=== PATIENT | female | born 1935 | race Caucasian/White ===

== ENCOUNTER 2023-10-10 08:57 | Observation (INO) | payer MEDICARE ==
[~2023-10-10] VITALS: Ht 165.1 cm; Wt 71.2 kg
[~2023-10-10 08:57] MED LIST: AMLODIPINE BESY10 MG PO; Areds2 PO; CARAFATE1 GM/10 ML PO; CLONIDINE HCL0.2 MG PO; DOXYCYCLINE HY100 MG PO; METOPROLOL TART50 MG PO; OMEPRAZOLE40 MG PO; PRAVASTATIN SOD40 MG PO; SERTRALINE HCL100 MG PO
[2023-10-10 09:31] LABS: EOSINOPHILS % 0.2 % (0.0-6.0); LYMPHOCYTES # (AUTO) 1.1 (1.0-3.2); LYMPHOCYTES % 25.3 % (18.0-39.1); MEAN CORPUSCULAR HEMOGLOBIN 29.9 pg (28-32); MEAN CORPUSCULAR HGB CONC 31.2 g/dL (31-35); MEAN CORPUSCULAR VOLUME 95.7 fL (81-99); MONOCYTES # (AUTO) 2.9 (0.2-0.8); MONOCYTES % 66.7 % (4.4-11.3); NEUTROPHILS # (AUTO) 0.3 (2.1-6.9); NEUTROPHILS % 7.6 % (38.7-80.0); PLATELET COUNT 61 x10e3/uL (140-360); RED BLOOD COUNT 2.11 x10e6/uL (3.6-5.1); RED CELL DISTRIBUTION WIDTH 16.9 % (11.7-14.4)
[2023-10-10 09:36] LABS: HEMATOCRIT 20.2 % (34.2-44.1); HEMOGLOBIN 6.3 g/dL (12.0-16.0)
[2023-10-10 09:45] LABS: ALBUMIN 3.7 g/dL (3.5-5.0); ALBUMIN/GLOBULIN RATIO 0.9 (0.8-2.0); ANION GAP 17.1 mmol/L (8-16); BILIRUBIN,TOTAL 0.5 mg/dL (0.2-1.2); CALCIUM 9.4 mg/dL (8.4-10.2); CREATININE, SERUM 1.35 mg/dL (0.57-1.11); POTASSIUM 4.1 mmol/L (3.5-5.1); TOTAL PROTEIN 7.9 g/dL (6.5-8.1)
[2023-10-10] MEDS ORDERED: ONDANSETRON HCL INJ 2MG/ML 2ML 2 MG/ML VIAL IV PRN ×2 (10:45→12:45)
[2023-10-10] MEDS ORDERED: SODIUM CHLORIDE FLUSH 10 ML SYR INJ PRN (10:45)
[2023-10-10] MEDS ORDERED: MELATONIN 3 MG TAB PO PRN (12:45)
[2023-10-10] MEDS ORDERED: ALBUTEROL SULF 0.083% NEB SOLN 3 ML NEB NEB PRN (12:45)
[2023-10-10] MEDS ORDERED: GUAIFENESIN/DEXTROMETHORPHAN LIQD 5 ML UDC PO PRN (12:45)
[2023-10-10] MEDS ORDERED: HYDRALAZINE HCL 20 MG/ML VIAL IV PRN (12:45)
[2023-10-10] MEDS ORDERED: DOCUSATE SODIUM 100 MG CAP PO PRN (12:45)
[2023-10-10] MEDS ORDERED: ACETAMINOPHEN 325 MG TAB PO PRN (12:45)
[2023-10-10] MEDS ORDERED: MAGNESIUM/ALUMINUM/SIMETHICONE 30 ML UDC PO PRN (12:45)
[2023-10-10 14:05] VITALS: BP 150/70; PULSE 80; RESP 16; TEMP 97.9; O2SAT 98
[2023-10-10 14:13] VITALS: BP 150/70; PULSE 80; RESP 16; TEMP 97.9; O2SAT 98
[2023-10-10 14:18] VITALS: BP 150/70; PULSE 80; RESP 16; TEMP 97.9; O2SAT 98
[2023-10-10] MEDS ORDERED: SUCRALFATE 1 GM/10 ML SUSP ONE ×2 (16:20→20:35)
[2023-10-10] MEDS ORDERED: METOPROLOL TARTRATE 50 MG TAB ONE (16:21)
[2023-10-10] MEDS: SUCRALFATE 1 GM/10 ML SUSP PO SCH (16:39)
[2023-10-10] MEDS: METOPROLOL TARTRATE 50 MG TAB PO SCH (16:40)
[2023-10-10 20:00] VITALS: BP 119/58; PULSE 81; RESP 18; TEMP 98.2; O2SAT 98
[2023-10-10] MEDS ORDERED: SERTRALINE HCL 100 MG TAB ONE (20:35)
[2023-10-10] MEDS ORDERED: PRAVASTATIN 20 MG TAB PO ONE (20:35)
[2023-10-10] MEDS: SERTRALINE HCL 100 MG TAB PO SCH (21:22)
[2023-10-10] MEDS: SODIUM CHLORIDE 0.9% 250ML 250 ML IV ONE (21:25)
[2023-10-10] MEDS: PRAVASTATIN 20 MG TAB PO SCH (21:25)
[2023-10-10 23:14] VITALS: BP 119/58; PULSE 81; RESP 18; TEMP 98.2; O2SAT 98
[2023-10-11 00:18] VITALS: BP 109/54; PULSE 79; RESP 18; TEMP 98.2; O2SAT 97
[2023-10-11 08:15] VITALS: BP 133/59; PULSE 67; RESP 20; TEMP 97.8; O2SAT 95
[2023-10-11 08:20] VITALS: BP 133/59; PULSE 67; RESP 20; TEMP 97.8; O2SAT 95
[2023-10-11 09:00] VITALS: BP 133/59; PULSE 67; RESP 20; TEMP 97.8; O2SAT 95
[2023-10-11] MEDS ORDERED: PANTOPRAZOLE SOD 40 MG TABEC ONE (10:46)
[2023-10-11] MEDS ORDERED: MULTIVITAMINS/MINERALS TAB ONE (10:46)
[2023-10-11] MEDS ORDERED: METOPROLOL TARTRATE 50 MG TAB ONE ×2 (10:46→17:58)
[2023-10-11] MEDS ORDERED: SUCRALFATE 1 GM/10 ML SUSP ONE ×2 (10:48→17:58)
[2023-10-11] MEDS: PANTOPRAZOLE SOD 40 MG TABEC PO SCH (11:01)
[2023-10-11] MEDS: MULTIVITAMINS/MINERALS TAB PO SCH (11:03)
[2023-10-11 11:33] LABS: HEMOGLOBIN 8.9 g/dL (12.0-16.0); LYMPHOCYTES # (AUTO) 0.7 (1.0-3.2); LYMPHOCYTES % 8.9 % (18.0-39.1); MEAN CORPUSCULAR HEMOGLOBIN 30.7 pg (28-32); MEAN CORPUSCULAR VOLUME 93.1 fL (81-99); MONOCYTES % 85.3 % (4.4-11.3); NEUTROPHILS # (AUTO) 0.5 (2.1-6.9); NEUTROPHILS % 5.8 % (38.7-80.0); PLATELET COUNT 57 x10e3/uL (140-360); WHITE BLOOD COUNT 8.17 x10e3/uL (4.8-10.8)
[2023-10-11 11:50] LABS: ALBUMIN 3.5 g/dL (3.5-5.0); ALBUMIN/GLOBULIN RATIO 0.8 (0.8-2.0); BILIRUBIN,TOTAL 0.6 mg/dL (0.2-1.2); CALCIUM 9.2 mg/dL (8.4-10.2); CREATININE, SERUM 1.22 mg/dL (0.57-1.11); TOTAL PROTEIN 7.7 g/dL (6.5-8.1)
[2023-10-11 11:56] VITALS: BP 160/62; PULSE 74; RESP 18; TEMP 98.4; O2SAT 99
[2023-10-11] MEDS ORDERED: ONDANSETRON HCL 4 MG ORAL DISINTEGRATING TAB PO PRN ×2 (12:45)
[2023-10-11 16:06] VITALS: BP 148/66; PULSE 72; RESP 17; TEMP 98.2; O2SAT 98
== END 2023-10-11 18:27 | disposition home or self-care (01) ==
LOC: ER 09:01 → ERHOLD 10:43 → MED/SURG2 13:45
PROVIDERS: ADMIT Internal Medicine; ATTEND Internal Medicine
DX: D64.9 Anemia, unspecified (principal); C95.90 Leukemia, unspecified not having achieved remission; E46 Unspecified protein-calorie malnutrition; Z68.26 Body mass index [BMI] 26.0-26.9, adult; R63.4 Abnormal weight loss; D69.59 Other secondary thrombocytopenia; I12.9 Hypertensive chronic kidney disease with stage 1 through stage 4 chronic kidney disease, or unspecified chronic kidney disease; N18.30 Chronic kidney disease, stage 3 unspecified; E78.5 Hyperlipidemia, unspecified; I25.10 Atherosclerotic heart disease of native coronary artery without angina pectoris; I25.2 Old myocardial infarction; Z87.891 Personal history of nicotine dependence; K59.09 Other constipation; M16.0 Bilateral primary osteoarthritis of hip; Z11.52 Encounter for screening for COVID-19; Z79.899 Other long term (current) drug therapy
CPT/HCPCS: 36415 ×2; 36430; 80053 ×2; 85025 ×2; 86850; 86870; 86880; 86900; 86905; 86920; 86922; 99001; 99284; G0378 ×2; P9016; S0164; U0002